=== PATIENT | female | born 1980 | race American Indian/Alaskan Native ===

== ENCOUNTER 2022-03-02 16:08 | Emergency (ER) | payer SELFPAY ==
[2022-03-02] MEDS ORDERED: MORPHINE 4 MG/1 ML INJ IV ONE (16:52)
[2022-03-02] MEDS ORDERED: ONDANSETRON 4 MG/2 ML INJ IV ONE ×2 (16:52→18:29)
[2022-03-02] MEDS ORDERED: SODIUM CHLORIDE 0.9% 1000 ML 1,000 ML IV ONE (16:52)
--- NOTE | 2022-03-02 16:58 | Emergency Department Report ---
ED Abdominal Pain HPI - General Chief Complaint: Abdominal Pain Stated Complaint: ABD PAIN/VOMITING Time Seen by Provider: 03/02/22 16:50 Source: patient, EMS Mode of arrival: Stretcher Limitations: No Limitations - History of Present Illness Initial Comments: 41-year-old morbidly obese female with a history of kidney stone, pancreatitis, cholecystectomy who now presents with epigastric pain that started this morning progressively getting worse. Patient also reports some nonbloody emesis associated with nausea. She reported last menstrual period was 2 weeks ago. No fever or chills reported. No other modifying or positive factors reported. - Related Data Previous Rx's Medication Instructions Recorded Last Taken Type Docusate Sodium [Colace] 100 mg PO BID PRN 5 Days #10 03/02/22 Unknown Rx capsule NS Fluconazole [Diflucan TAB] 100 mg PO QDAY 1 Days #1 tablet NS 03/02/22 Unknown Rx Tamsulosin [Flomax] 0.4 mg PO QDAY 5 Days #5 cap NS 03/02/22 Unknown Rx oxyCODONE /ACETAMINOPHEN [Percocet 1 tab PO Q6HR PRN 5 Days #20 03/02/22 Unknown Rx 5/325] tablet NS Allergies Allergy/AdvReac Type Severity Reaction Status Date / Time No Known Allergies Allergy Verified 03/02/22 16:14 ED Review of Systems ROS: Stated complaint: ABD PAIN/VOMITING Other details as noted in HPI Comment: All other systems reviewed and negative Gastrointestinal: abdominal pain, nausea, vomiting. denies: diarrhea, constipation ED Past Medical Hx - Past Medical History Previous Medical History?: Yes Hx Diabetes: Yes - Surgical History Past Surgical History?: No - Social History Smoking Status: Current Every Day Smoker Substance Use Type: None - Medications Home Medications: Home Medications Medication Instructions Recorded Confirmed Last Taken Type Docusate Sodium [Colace] 100 mg PO BID PRN 5 Days #10 03/02/22 Unknown Rx capsule NS Fluconazole [Diflucan TAB] 100 mg PO QDAY 1 Days #1 tablet NS 03/02/22 Unknown Rx Tamsulosin [Flomax] 0.4 mg PO QDAY 5 Days #5 cap NS 03/02/22 Unknown Rx oxyCODONE /ACETAMINOPHEN [Percocet 1 tab PO Q6HR PRN 5 Days #20 03/02/22 Unknown Rx 5/325] tablet NS ED Physical Exam - General Limitations: No Limitations General appearance: alert, in distress (Due to abdominal pain) - Head Head exam: Present: normal inspection - Eye Eye exam: Present: normal appearance Pupils: Present: normal accommodation - ENT ENT exam: Present: normal exam, normal orophraynx, mucous membranes dry - Neck Neck exam: Present: normal inspection, full ROM. Absent: tenderness, meningismus - Respiratory Respiratory exam: Present: normal lung sounds bilaterally. Absent: respiratory distress, accessory muscle use - Cardiovascular Cardiovascular Exam: Present: regular rate, normal rhythm, normal heart sounds - GI/Abdominal GI/Abdominal exam: Present: soft, tenderness (Epigastric tenderness to palp ation), normal bowel sounds. Absent: distended - Extremities Exam Extremities exam: Present: normal inspection, full ROM, normal capillary refill - Back Exam Back exam: Present: normal inspection. Absent: CVA tenderness (R), CVA tenderness (L) - Neurological Exam Neurological exam: Present: alert, oriented X3 - Psychiatric Psychiatric exam: Present: normal affect, normal mood, agitated (Due to pain) - Skin Skin exam: Present: warm, normal color ED Course Vital Signs 03/02/22 03/02/22 16:12 16:19 Temperature 98 F Pulse Rate 82 Blood Pressure 138/88 [Left] O2 Sat by Pulse 99 100 Oximetry - Reevaluation(s) Reevaluation #1: 03/02/22 16:55 Here with epigastric pain associated with nausea and vomiting--this could be among the following differential gastritis, gastroenteritis, pancreatitis, and SBO. So another 2 rule out the above we will go ahead and order CT scan of the abdomen/pelvic for any inflammatory changes, routine CBC, CMP and urinalysis for any infectious process or electrolyte abnormality. In the meantime we will go ahead and give morphine 4 mg IV x1 and Zofran 4 mg IV x1 for symptomatic relief. 03/02/22 18:21 Noted with hyponatremia 132 with elevated blood sugar at 347 mg/dl-- will continue hydration and add regular insulin 10 units IV and SQ x 1-- and continue to monitor. CT abd/pel still pending at this time. Reevaluation #2: 03/02/22 18:29 I rechecked this patient who reports that her initial pain medication is wearing off and need something else for pain., She has not had her CT abd/pel yet. Given Fentanyl 50 mcg and zofran 4 mg IV x 1-- Reevaluation #3: 03/02/22 20:21 CT abd/pel noted with right 3mm non obstructive renal stone with minimal hydronephrosis and right adnexa cyst-- Pt reassured and d/c home to close follow up with her pcp and warning to return to ED if symptoms worsen or develop f ever. Reevaluation #4: 03/02/22 20:32 Pt requested for diflucan for yeast infection ED Medical Decision Making - Lab Data Result diagrams: 03/02/22 17:04 03/02/22 17:04 Critical care attestation.: If time is entered above; I have spent that time in minutes in the direct care of this critically ill patient, excluding procedure time. ED Disposition Clinical Impression: Hyperglycemia, Calculus of right kidney, Carmen albicans infection Abdominal pain Qualifiers: Abdominal location: epigastric Qualified Code(s): R10.13 - Epigastric pain Disposition: 01 HOME / SELF CARE / HOMELESS Is pt being admited?: No Does the pt Need Aspirin: No Condition: Stable Instructions: Kidney Stones, [id number], Hyperglycemia, [id number], Dietary Guidelines to Help Prevent Kidney Stones, Abdominal Pain (ED) Additional Instructions: Increase your daily fluid to help your hydration Take your pain medicine to help your symptoms Call and schedule follow-up with your primary doctor in the next 3 to 5 days for progress Please do not hesitate to call or return to emergency room if you have pain worsening while taking your pain medication or you develop fever as this could be a sign of complication need to be addressed immediately. Prescriptions: Docusate Sodium [Colace] 100 mg PO BID PRN 5 Days #10 capsule NS PRN Reason: Constipation Fluconazole [Diflucan TAB] 100 mg PO QDAY 1 Days #1 tablet NS Tamsulosin [Flomax] 0.4 mg PO QDAY 5 Days #5 cap NS oxyCODONE /ACETAMINOPHEN [Percocet 5/325] 1 tab PO Q6HR PRN 5 Days #20 tablet NS PRN Reason: Pain Referrals: ROBERTO ESTRADA MD [Referring] - 3-5 Days Time of Disposition: 20:28
[2022-03-02 17:20] LABS: Basophils # (Auto) 0.1 K/mm3 (0.0-0.1); Basophils % (Auto) 0.9 % (0.0-1.8); Eosinophils % (Auto) 0.5 % (0.0-4.3); Hematocrit 38.8 % (30.3-42.9); Lymphocytes # (Auto) 1.4 K/mm3 (1.2-5.4); Lymphocytes % (Auto) 16.5 % (13.4-35.0); Mean Corpuscular HGB Conc 33 % (30-34); Mean Corpuscular Volume 84 fl (79-97); Monocytes # (Auto) 0.4 K/mm3 (0.0-0.8); Monocytes % (Auto) 4.3 % (0.0-7.3); Platelet Count 294 K/mm3 (140-440); Red Blood Count 4.65 M/mm3 (3.65-5.03); Red Cell Distribution Width 14.9 % (13.2-15.2)
[2022-03-02 17:40] LABS: Alanine Aminotransferase 13 units/L (7-56); Albumin 4.3 g/dL (3.9-5); Blood Urea Nitrogen 15 mg/dL (7-17); Hemolysis Index 2
[2022-03-02 17:43] LABS: BUN/Creatinine Ratio 38
[2022-03-02] MEDS ORDERED: INSULIN REGULAR, HUMAN 100 UNITS/1 ML SUB-Q ONE (18:23)
[2022-03-02] MEDS ORDERED: INSULIN REGULAR, HUMAN 100 UNITS/1 ML IV ONE (18:23)
[2022-03-02] MEDS ORDERED: fentaNYL 100 MCG/2 ML INJ IV ONE (18:29)
--- NOTE | 2022-03-02 19:53 | Cat Scan Report ---
CT ABDOMEN AND PELVIS WITHOUT CONTRAST HISTORY: epigastric pain. COMPARISON: None. TECHNIQUE: CT images of the abdomen and pelvis were obtained without administration of intravenous co ntrast. All CT scans at this location are performed using CT dose reduction for ALARA by means of au tomated exposure control. FINDINGS: Lungs/bones: Lung bases are clear Abdomen/pelvis: Within limits of a noncontrast exam the liver is enlarged. Spleen, adrenal glands, p ancreas and upper GI tract appear normal. Prior cholecystectomy is noted. Calcification in the right kidney measures 3 mm. No hydronephrosis is seen. In the pelvis uterus is slightly enlarged with endometrial fluid. Bilateral adnexal cysts are suggest ed. No bowel obstruction is seen. Appendix appears normal. No focal inflammatory change in the bowel loops there is degenerative change SI joints with sclerosis left greater than right. IMPRESSION: 1. Calcification right kidney could represent nonobstructing stone measuring 3 mm. No hydronephrosis. 2. Hepatomegaly. 3. No bowel obstruction is seen. No focal inflammatory change. 4. Adnexal cyst. There is endometrial fluid as well. No free fluid in the pelvis. 5. Degenerative change in the SI joints bilaterally. Signer Name: Vadim Borden MD Signed: 03/02/2022 7:49 PM Workstation Name: [id number]
[2022-03-02 21:11] VITALS: BP 113/60
== END 2022-03-02 21:35 | disposition home or self-care (01) ==
LOC: ED 16:08
DX: B37.9 Candidiasis, unspecified (principal); F17.200 Nicotine dependence, unspecified, uncomplicated; Z79.899 Other long term (current) drug therapy; Z90.49 Acquired absence of other specified parts of digestive tract
CPT/HCPCS: 36415; 74176; 80053; 82962; 83690; 85025; 96361; 96372; 96374; 96375; 96376; 99284; J2270; J2405; J3010; J7030; Q9967; J1815